=== PATIENT | male | born 1990 | race African-American/Black ===

== ENCOUNTER 2017-09-22 14:00 | Emergency (ER) | payer SELFPAY ==
[2017-09-22 14:15] VITALS: BP 135/77
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
== END 2017-09-22 15:39 | disposition home or self-care (01) ==
LOC: ER 14:00
DX: S01.111A Laceration without foreign body of right eyelid and periocular area, initial encounter (principal); W51.XXXA Accidental striking against or bumped into by another person, initial encounter; Y93.67 Activity, basketball
CPT/HCPCS: 99283

== ENCOUNTER 2017-11-02 02:37 | Emergency (ER) | payer OTHER ==
[2017-11-02] MEDS ORDERED: KETOROLAC TROMETHAMINE 60 MG/2 ML SDV IM ONE (04:20)
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
[2017-11-02 05:11] VITALS: BP 134/70
== END 2017-11-02 05:32 | disposition home or self-care (01) ==
LOC: ER 02:37
DX: G89.29 Other chronic pain (principal); M54.5 Low back pain; F17.200 Nicotine dependence, unspecified, uncomplicated
CPT/HCPCS: 99283; 96372; J1885

== ENCOUNTER 2018-03-05 21:22 | Emergency (ER) | payer OTHER ==
[2018-03-05 21:44] VITALS: BP 144/79
[2018-03-06] MEDS ORDERED: NAPROXEN 250 MG TABLET PO ONE (00:24)
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
== END 2018-03-06 01:50 | disposition home or self-care (01) ==
LOC: ER 21:22
DX: S20.211A Contusion of right front wall of thorax, initial encounter (principal); W19.XXXA Unspecified fall, initial encounter
CPT/HCPCS: 99283